=== PATIENT | male | born 1950 | race Caucasian/White ===

== ENCOUNTER 2017-06-29 16:47 | Emergency (ER) | payer OTHER ==
[2017-06-29 16:53] VITALS: BP 185/110; PULSE 88; RESP 20; TEMP 98.4; O2SAT 98
[2017-06-29] MEDS ORDERED: METH5TAB4 PO (17:07)
[2017-06-29] MEDS ORDERED: METO25TA3 PO (17:07)
--- NOTE | 2017-06-29 17:41 | RADRPT ---
EXAM DATE/TIME: 06/29/2017 17:25 [place] COMPARISON: No previous studies available for comparison. INDICATIONS : Left elbow swelling and pain, no trauma. MEDICAL HISTORY : None. SURGICAL HISTORY : None. ENCOUNTER: Initial ACUITY: 2 days PAIN SCORE: 3/10 LOCATION: Left posterior elbow. FINDINGS: Two view examination of the left elbow demonstrates significant periarticular and posterior elbow sof t tissue swelling. Bony structures are intact without evidence of fracture or dislocation. There is no significant joint effusion. CONCLUSION: Extensive periarticular soft tissue swelling which may be originating from the olecra non bursa. Otherwise normal-appearing joint without evidence of joint effusion or acute bony abnormality. Clint Real MD on June 29, 2017 at 17:38 Board Certified Radiologist. This report was verified electronically.
--- NOTE | 2017-06-29 17:43 | PD ---
HPI Chief Complaint: Skin Problem Time Seen by Provider: 17:17 Travel History International Travel<30 days: No Contact w/Intl Traveler<30days: No Traveled to known affect area: No History of Present Illness HPI 67-year-old male here with left upper extremity swelling, itching, mild erythema. Patient believes he may have been bitten by an insect 2 days ago. Severity is moderate and relieved with OTC Benadryl. He reports the swelling has actually reduced since yesterday. While at his primary doctor's for routine visit he mentioned the symptoms of his left elbow. He was referred to the ER for x-ray of the elbow. Patient had routine blood work done today which revealed no leukocytosis his white blood cell count was 6.2. REPLACED BY [facility] Past Medical History Narrative Medical Significant for hypertension Hypertension: Yes Thyroid Disease: Yes Influenza Vaccination: No Past Surgical History Surgical History: No Previous Surgery Social History Alcohol Use: No Tobacco Use: No Substance Use: No Allergies-Medications (Allergen,Severity, Reaction): Coded Allergies: ibuprofen (Verified Allergy, Severe, LIP SWELLING, 06/29/17) Reported Meds & Prescriptions Reported Meds & Active Scripts Active Reported Methimazole 5 Mg Tab 5 Mg PO DAILY Metoprolol Tartrate 25 Mg Tab 25 Mg PO DAILY Review of Systems Except as stated in HPI: all other systems reviewed are Neg General / Constitutional: No: Fever Physical Exam Narrative GENERAL: Alert male no distress. SKIN: Warm and dry. HEAD: Normocephalic. EYES: No scleral icterus. No injection or drainage. NECK: Supple, trachea midline. No JVD or lymphadenopathy. CARDIOVASCULAR: Regular rate and rhythm without murmurs, gallops, or rubs. RESPIRATORY: Breath sounds equal bilaterally. No accessory muscle use. GASTROINTESTINAL: Abdomen soft, non-tender, nondistended. MUSCULOSKELETAL: No cyanosis. Left upper extremity: Notable swelling, mild warmth and erythema from the mid humerus to the proximal forearm. 3 mm abrasion to the left lateral forearm. No drainage, fluctuance, induration. Patient can freely flex and extend the elbow. No bony tenderness. 2+ distal pulses. Brisk cap refill. Data Data Last Documented VS Vital Signs Date Time Temp Pulse Resp B/P (MAP) Pulse Ox O2 Delivery O2 Flow Rate FiO2 06/29/17 16:53 98.4 88 20 185/110 (135) 98 Orders Orders Elbow, Limited (Ap&Lat) (06/29/17 ) MDM Medical Decision Making Medical Screen Exam Complete: Yes Emergency Medical Condition: Yes Interpretation(s) Afebrile. No tachycardia. CBC from outpatient lab today 06/29/17: WBC 6.9 Left elbow x-ray: CONCLUSION: Extensive periarticular soft tissue swelling which may be originating from the olecranon bursa. Otherwise normal-appearing joint without evidence of joint effusion or acute bony abnormality. Differential Diagnosis Cellulitis, abscess, inflamed insect bite, septic arthritis Narrative Course 67 old male with swelling and erythema to the left upper extremity in 2 days. He denies pain or fever. He reports the area as pruritic. The patient does have a small abrasion in the area of the erythema but cannot recall specific injury. I do not suspect septic arthritis. He is afebrile. No leukocytosis. I believe this is cellulitis. Patient will be treated with clindamycin and instructed to follow-up with his primary doctor for recheck. Diagnosis Primary Impression: Cellulitis Qualified Codes: L03.114 - Cellulitis of left upper limb Referrals: Primary Care Physician Additional Instructions: Take the antibiotics as prescribed. Follow-up with her primary doctor for recheck. Return if he developed new or worsening symptoms such as fever, increasing pain , increasing swelling Scripts Clindamycin (Clindamycin) 300 Mg Cap 300 MG PO Q6H for Infection for 10 Days, #40 CAP 0 Refills Prov: Kristi Haile 06/29/17 Disposition: 01 DISCHARGE HOME Condition: Stable Kristi Haile Jun 29, 2017 17:43
[2017-06-29] MEDS ORDERED: CLIN300C5 PO (17:47)
[2017-06-29] MEDS ORDERED: CLINDAMYCIN 150 MG CAP PO ONE (18:00)
== END 2017-06-29 17:58 | disposition home or self-care (01) ==
LOC: PHEFT 16:47
DX: L03.114 Cellulitis of left upper limb (principal); I10 Essential (primary) hypertension
CPT/HCPCS: 73070; 99283

== ENCOUNTER 2018-02-16 16:34 | Inpatient (IN) ==
--- NOTE | 2018-02-16 17:11 | XR ---
EXAM DATE: 02/16/2018 5:04 PM EDT AGE/SEX: 67 years / Male INDICATIONS: Short of breath, post 12 hours heart ablation. CLINICAL DATA: This is the patient's initial encounter. Patient reports that signs and symptoms have been present for 1 day and indicates a pain score of 1/10. MEDICAL/SURGICAL HISTORY: . A-fib. . Heart ablation. COMPARISON: No prior exams available for comparison. FINDINGS: The heart is moderately enlarged. The mediastinal contours appear somewhat widened. There is a small right-sided effusion. The osseous structures are grossly intact. CT imaging may be of benefit for fur ther assessment. CONCLUSION: The heart appears mildly enlarged. The mediastinum appears somewhat widened and indistinct. CT imagin g of the chest with contrast would be of benefit for further assessment. Electronically signed by: Vijay Glass MD 02/16/2018 5:10 PM EDT
[2018-02-16 17:42] LABS: Baso # (Auto) 0.1 th/mm3 (0.0-0.2); Eos # (Auto) 0.1 th/mm3 (0.0-0.4); Eos % (Auto) 1.3 % (0.0-4.0); Hemoglobin 11.2 gm/dL (13.0-17.0); Lymph # (Auto) 1.5 th/mm3 (1.0-4.8); Lymph % (Auto) 20.1 % (9.0-44.0); Mean Corpuscular HGB Conc 34.9 % (32.0-36.0); Mean Corpuscular Hemoglobin 32.6 pg (27.0-34.0); Mean Corpuscular Volume 93.2 fL (80.0-100.0); Mean Platelet Volume 7.6 fL (7.0-11.0); Mono # (Auto) 0.5 th/mm3 (0.0-0.9); Mono % (Auto) 6.7 % (0.0-8.0); Neut # (Auto) 5.4 th/mm3 (1.8-7.7); Neut % (Auto) 70.9 % (16.0-70.0); Platelet Count 129 th/mm3 (150-450); Red Blood Count 3.44 mil/mm3 (4.50-5.90); Red Cell Distribution Width 15.9 % (11.6-17.2); White Blood Count 7.6 th/mm3 (4.0-11.0)
[2018-02-16 18:06] LABS: Calcium 7.9 mg/dL (8.5-10.1); Carbon Dioxide 24.8 meq/L (21.0-32.0); Potassium 4.1 meq/L (3.5-5.1)
[2018-02-16 18:09] LABS: Troponin I 0.34 ng/mL (0.02-0.05)
[2018-02-16 18:33] LABS: Activated Partial Thrombo Time 28.2 sec (24.3-30.1); INR 1.1 Ratio; Prothrombin Time 11.4 sec (9.8-11.6)
--- NOTE | 2018-02-16 19:36 | CT ---
EXAM DATE: 02/16/2018 7:08 PM EDT AGE/SEX: 67 years / Male INDICATIONS: Chest pain and short of breath Post cardiac ablation. CLINICAL DATA: This is the patient's initial encounter. Patient reports that signs and symptoms have been present for 1 day and indicates a pain score of 5/10. MEDICAL/SURGICAL HISTORY: Cardiovascular disease. Hypertension. . Cardiac ablation. RADIATION DOSE: 23.33 CTDI (mGy) COMPARISON: No prior exams available for comparison. TECHNIQUE: Volumetric scanning was performed using a multi-row detector CT scanner during bolus infu zoye of 100 ml Omnipaque 350 (iohexol) nonionic water-soluble contrast as a cumulative dose for mult iple exams. The data was post processed with a variety of visualization algorithms including full vol ume maximum intensity projection and sliding thin slab reformation. Using automated exposure control and adjustment of the mA and/or kV according to patient size, radiation dose was kept as low as reas onably achievable to obtain optimal diagnostic quality images. DICOM format image data is available electronically for review and comparison. FINDINGS: No filling defects identified to suggest pulmonary embolic disease. There is a small right-sided pleu ral effusion. Mild basilar atelectasis. No pneumothorax. There is a mildly enlarged AP window lymph node measuring up to 1.5 cm in short axis diameter. Border line enlarged pretracheal and subcarinal lymph nodes also noted. Small amount of free fluid in the ab domen. CONCLUSION: 1. Negative for pulmonary embolus. Small right-sided pleural effusion. 2. Mild adenopathy at the AP window. No significant lung consolidation. 3. Small amount of free fluid in the abdomen around the spleen. Electronically signed by: Juan Figueroa MD 02/16/2018 7:35 PM EDT
--- NOTE | 2018-02-16 19:52 | CT ---
EXAM DATE: 02/16/2018 7:07 PM EDT AGE/SEX: 67 years / Male INDICATIONS: Abdomen and chest pain post cardiac ablation. CLINICAL DATA: This is the patient's initial encounter. Patient reports that signs and symptoms have been present for 1 day and indicates a pain score of 9/10. MEDICAL/SURGICAL HISTORY: Cardiovascular disease. . cardiac ablation. ORAL CONTRAST: No oral contrast ingested. RADIATION DOSE: 31.25 CTDI (mGy) COMPARISON: No prior exams available for comparison. TECHNIQUE: Multiple contiguous axial images were obtained through the abdomen and pelvis following b olus infusion of 100 ml Omnipaque 350 (iohexol) nonionic water-soluble contrast as a cumulative dos e for multiple exams. No oral contrast ingested. Using automated exposure control and adjustment of the mA and/or kV according to patient size, radiation dose was kept as low as reasonably achievable t o obtain optimal diagnostic quality images. DICOM format image data is available electronically for review and comparison. FINDINGS: There is a small right-sided pleural effusion. Fatty liver. Spleen, adrenals, kidneys and pancreas demonstrate no acute findings. There is mild anas arca. Small amount of free fluid in the abdomen. No free air. Mild constipation.. CONCLUSION: 1. Small right effusion. Mild ascites. Mild anasarca. Mild constipation. Electronically signed by: Juan Figueroa MD 02/16/2018 7:51 PM EDT
--- NOTE | 2018-02-16 20:18 | ED ---
HPI General Chief complaint: Chest Pain Stated complaint: Chest pain/sob Time Seen by Provider: 02/16/18 17:37 Source: patient Mode of arrival: wheelchair Limitations: no limitations History of Present Illness HPI narrative: Patient is a 67 year old male who comes in complaining of shortness of breath and chest tightness. He had an ablation for atrial fibrillation done [address] Erwin and says yesterday he started to feel short of breath. He says he does not have pain to his chest, but feels like it is tight. He says that walking makes the shortness of breath worse. He says he can barely walk a few steps without becoming very short of breath. He says he has no issue with laying flat. He denies fever or chills. He denies nausea or vomiting. He has had swelling to his left leg, but this has been a chronic issue for him. Severity is moderate. Related Data Home Medications Medication Instructions Recorded Confirmed apixaban [Eliquis] 5 mg PO BID 02/14/18 02/16/18 gabapentin 300 mg PO DAILY 02/14/18 02/16/18 methimazole 20 mg PO DAILY 02/14/18 02/16/18 metoprolol succinate 150 mg PO DAILY 02/14/18 02/16/18 Allergies Allergy/AdvReac Type Severity Reaction Status Date / Time cat dander Allergy Severe Itching Verified 02/16/18 17:50 house dust Allergy Severe Itching Verified 02/16/18 17:50 ibuprofen Allergy Severe LIP Verified 02/16/18 17:50 SWELLING Review of Systems Except as stated in HPI: all other systems reviewed are negative Constitutional Denies chills and Denies fever(s) ENT Denies dizziness Cardiovascular Reports edema, Reports dyspnea and Reports dyspnea on exertion Respiratory Denies cough and Denies wheezing Gastrointestinal Denies nausea and Denies vomiting Musculoskeletal Denies myalgias and Denies arthralgias Integumentary/Breasts Denies change in pigmentation and Denies lesions Neurologic Denies focal weakness and Denies numbness [facility] Medical History Medical History Atrial fibrillation and flutter (Acute) Cellulitis (Acute) Chronic kidney disease (Acute) HTN (hypertension) (Acute) Hiatal hernia (Acute) Hyperthyroidism (Acute) Obstructive sleep apnea (Acute) Surgical History Surgical History H/O adenoidectomy (Acute) H/O hernia repair (Acute) Hx of tonsillectomy (Acute) S/P ablation of atrial fibrillation (Acute) Social History Social History Substance History: No History of Abuse Second Hand Smoke Exposure: No Smoking Status: Never smoker Tobacco Type: Cigars How Often Do You Have a Drink Containing Alcohol: 4 or more times a week Recent Travel in [facility] within the Last 8 Weeks: No Recent Out of Country Travel within the Last 8 Weeks: No Immunization History Tetanus Immunization: Unsure Hx Influenza Vaccine This Season: No Exam Narrative Exam Narrative: GENERAL: Awake and alert, in no acute distress. SKIN: Focused skin assessment warm/dry. No wounds or signs of infection. HEAD: Atraumatic. Normocephalic. EYES: Pupils equal and round. No scleral icterus. ENT: Mucous membranes pink and moist. NECK: Trachea midline. No JVD. CARDIOVASCULAR: Bradycardia. No murmur appreciated. RESPIRATORY: No accessory muscle use. Clear to auscultation. Breath sounds equal bilaterally. GASTROINTESTINAL: Abdomen soft, non-tender, nondistended. MUSCULOSKELETAL: No obvious deformities. No clubbing. No cyanosis. Mild edema of the left lower extremity. NEUROLOGICAL: Awake and alert. No obvious cranial nerve deficits. Motor grossly within normal limits. Normal speech. PSYCHIATRIC: Appropriate mood and affect; insight and judgment normal. Course Hospital Course: IV established, labs sent. Patient connected to the cardiac technologist. Initial Documented Vital Signs Temperature 98.7 F 02/16/18 16:41 Pulse Rate 49 L 02/16/18 16:41 Respiratory Rate 24 02/16/18 16:41 Blood Pressure 170/83 H 02/16/18 16:41 Pulse Oximetry 95 02/16/18 16:41 Last Documented Vital Signs Temperature 98.7 F 02/16/18 16:41 Pulse Rate 44 L 02/16/18 19:41 Respiratory Rate 24 02/16/18 16:41 Blood Pressure 162/70 H 02/16/18 19:41 Pulse Oximetry 100 02/16/18 19:41 Medical Decision Making MDM Narrative Medical decision making narrative: Patient is a 67 year old male who comes in complaining of shortness of breath and chest tightness. IV established, labs sent. Patient connected to the cardiac technologist. Labs show elevated troponin to 0.34. This is likely secondary to patient's recent ablation. Patient is on anticoagulation currently, Eliquis. CXR was concerning for widening of the mediastinum. CTA performed showed no PE or issue with the aorta. Patient does have a small right sided pleural effusion and mild ascites. I spoke with Dr. Haney who suggests observation and repeat Troponins. Patient placed in observation for further management. Differential Diagnosis Differential Diagnosis: ACS vs CHF vs PE Medical Records Medical records reviewed: Yes I reviewed the patient's medical records. Lab Data Lab results reviewed: Yes I reviewed the patient's lab results. Result diagrams: 02/16/18 17:13 02/16/18 17:13 Lab Results 02/16/18 02/16/18 02/16/18 Range/Units 17:13 17:13 18:00 WBC 7.6 (4.0-11.0) th/mm3 RBC 3.44 L (4.50-5.90) mil/mm3 Hgb 11.2 L (13.0-17.0) gm/dL Hct 32.0 L (39.0-51.0) % MCV 93.2 (80.0-100.0) fL MCH 32.6 (27.0-34.0) pg MCHC 34.9 (32.0-36.0) % RDW 15.9 (11.6-17.2) % Plt Count 129 L (150-450) th/mm3 MPV 7.6 (7.0-11.0) fL Neut % (Auto) 70.9 H (16.0-70.0) % Lymph % (Auto) 20.1 (9.0-44.0) % Loup % (Auto) 6.7 (0.0-8.0) % Eos % (Auto) 1.3 (0.0-4.0) % Baso % (Auto) 1.0 (0.0-2.0) % Neut # (Auto) 5.4 (1.8-7.7) th/mm3 Lymph # (Auto) 1.5 (1.0-4.8) th/mm3 Loup # (Auto) 0.5 (0.0-0.9) th/mm3 Eos # (Auto) 0.1 (0.0-0.4) th/mm3 Baso # (Auto) 0.1 (0.0-0.2) th/mm3 WBC Differential . Differential Comment Auto diff final PT (9.8-11.6) sec INR Ratio APTT (24.3-30.1) sec Sodium 136 (136-145) meq/L Potassium 4.1 (3.5-5.1) meq/L Chloride 103 (98-107) meq/L Carbon Dioxide 24.8 (21.0-32.0) meq/L Anion Gap 8 (5-15) meq/L BUN 11 (7-18) mg/dL Creatinine 1.09 (0.60-1.30) mg/dL Estimated GFR 68 L (>89) mL/min Random Glucose 115 H (74-106) mg/dL Calcium 7.9 L (8.5-10.1) mg/dL Troponin I 0.34 H (0.02-0.05) ng/mL B-Natriuretic Peptide 166 H (0-100) pg/mL 02/16/18 Range/Units 18:05 WBC (4.0-11.0) th/mm3 RBC (4.50-5.90) mil/mm3 Hgb (13.0-17.0) gm/dL Hct (39.0-51.0) % MCV (80.0-100.0) fL MCH (27.0-34.0) pg MCHC (32.0-36.0) % RDW (11.6-17.2) % Plt Count (150-450) th/mm3 MPV (7.0-11.0) fL Neut % (Auto) (16.0-70.0) % Lymph % (Auto) (9.0-44.0) % [place]oup % (Auto) (0.0-8.0) % Eos % (Auto) (0.0-4.0) % Baso % (Auto) (0.0-2.0) % Neut # (Auto) (1.8-7.7) th/mm3 Lymph # (Auto) (1.0-4.8) th/mm3 Loup # (Auto) (0.0-0.9) th/mm3 Eos # (Auto) (0.0-0.4) th/mm3 Baso # (Auto) (0.0-0.2) th/mm3 WBC Differential Differential Comment PT 11.4 (9.8-11.6) sec INR 1.1 Ratio APTT 28.2 (24.3-30.1) sec Sodium (136-145) meq/L Potassium (3.5-5.1) meq/L Chloride (98-107) meq/L Carbon Dioxide (21.0-32.0) meq/L Anion Gap (5-15) meq/L BUN (7-18) mg/dL Creatinine (0.60-1.30) mg/dL Estimated GFR (>89) mL/min Random Glucose (74-106) mg/dL Calcium (8.5-10.1) mg/dL Troponin I (0.02-0.05) ng/mL B-Natriuretic Peptide (0-100) pg/mL Imaging Data Radiologist's impression: Chest X-Ray 02/16/18 16:48 CONCLUSION: The heart appears mildly enlarged. The mediastinum appears somewhat widened and indistinct. CT imaging of the chest with contrast would be of benefit for further assessment. Chest CTA 02/16/18 17:48 CONCLUSION: 1. Negative for pulmonary embolus. Small right-sided pleural effusion. 2. Mild adenopathy at the AP window. No significant lung consolidation. 3. Small amount of free fluid in the abdomen around the spleen. Abdomen/Pelvis CT 02/16/18 18:46 CONCLUSION: 1. Small right effusion. Mild ascites. Mild anasarca. Mild constipation. ECG Data EKG Prior to Arrival: No Attestation: I personally reviewed and interpreted this ECG as follows: Interpretation: ECG shows sinus bradycardia at a rate of 49. No ST elevation or depression. Discharge Plan Physicians Team ED Provider: Antonietta Cross Primary Care Provider: UNKNOWN, Rxs /Orders / Referrals /Forms Prescriptions: No Action metoprolol succinate 100 mg Tablet Extended Release 24 Hr 150 mg PO DAILY RF: 0 gabapentin 300 mg Capsule 300 mg PO DAILY RF: 0 methimazole 10 mg Tablet 20 mg PO DAILY RF: 0 apixaban [Eliquis] 5 mg Tablet 5 mg PO BID RF: 0 Discharge Interventions Interventions: Vital Signs Last Done: 02/16/18 19:41 Status ED Status: With Doctor
[2018-02-16] MEDS ORDERED: Sod Chloride 0.9% Inj 1,000 ML IV.CONT SCH (20:30)
[2018-02-16] MEDS ORDERED: Bisacodyl 10 MG Supp RECTAL PRN (20:30)
[2018-02-16] MEDS ORDERED: Temazepam 15 MG Capsule PO PRN (21:00)
--- NOTE | 2018-02-16 22:51 | P.HPIM ---
History of Present Illness Primary Care Physician: UNKNOWN History of Present Illness: 67-year-old male with a history of atrial fibrillation, obstructive sleep apnea who underwent ablation for atrial fibrillation done on Wednesday. He presents for onset of substernal chest tightness worse with inspiration, generalized fatigue , dyspnea on exertion which began around 5 PM yesterday. Denies any nausea or vomiting, however has had decreased appetite. Denies any abdominal pain. Review of Systems All other systems reviewed negative except as stated in HPI PMFSH - History History Provided By: Patient - Medical History Medical History: Medical History (Last Reviewed 02/16/18 @ 20:29 by Antonietta Cross MD) Atrial fibrillation and flutter Cellulitis Chronic kidney disease HTN (hypertension) Hiatal hernia Hyperthyroidism Obstructive sleep apnea - Surgical History Surgical History: Surgical History (Last Reviewed 02/16/18 @ 20:29 by Antonietta Cross MD) H/O adenoidectomy H/O hernia repair Hx of tonsillectomy S/P ablation of atrial fibrillation - Family History Family History: Family History (Last Updated 02/16/18 @ 22:47 by Arslan Burnett MD) Father Diabetes Mother Diabetes - Tobacco History Second Hand Smoke Exposure: No Tobacco Use In Past 30 Days: No Smoking Status: Never smoker Tobacco Type: Cigars - Alcohol History How Often Do You Have a Drink Containing Alcohol: 4 or more times a week - Substance Use History Substance History: No History of Abuse - Travel History Recent Travel in the [place] Within the Last 8 Weeks: No Recent Travel Out of the Country Within the Last 8 Weeks: No - Immunization History Tetanus Immunization: Unsure Hx Influenza Vaccine This Season: No Medications and Allergies Active Medications: Active Medications Al Hydroxide/Mg Hydroxide (Milk Of Magnesia Liq) 30 ml PO Q12H PRN PRN Reason: Mild Constipation Bisacodyl (Dulcolax Supp) 10 mg RECTAL DAILY PRN PRN Reason: SEVERE CONSITIPATION Sodium Chloride (Ns Inj) 1,000 mls @ 50 mls/hr IV.CONT .Q20H SERVANDO Last Admin: 02/16/18 22:39 Dose: 50 mls/hr Lactulose (Lactulose Liq) 30 ml PO DAILY PRN PRN Reason: SEVERE CONSITIPATION Methimazole (Tapazole) 20 mg PO DAILY SERVANDO Sennosides (Senokot) 17.2 mg PO Q12H PRN PRN Reason: Moderate Constipation Temazepam (Restoril) 15 mg PO HS PRN PRN Reason: INSOMNIA Allergies Allergy/AdvReac Type Severity Reaction Status Date / Time cat dander Allergy Severe Itching Verified 02/16/18 17:50 house dust Allergy Severe Itching Verified 02/16/18 17:50 ibuprofen Allergy Severe LIP Verified 02/16/18 17:50 SWELLING Home Medications Medication Instructions Recorded Confirmed Type apixaban [Eliquis] 5 mg PO BID 02/14/18 02/16/18 History gabapentin 300 mg PO HS 02/14/18 02/16/18 History methimazole 20 mg PO DAILY 02/14/18 02/16/18 History metoprolol succinate 150 mg PO DAILY 02/14/18 02/16/18 History Exam Vital signs: Vital Signs 02/16/18 16:41 02/16/18 19:41 Temperature 98.7 F Pulse Rate 49 L 44 L Respiratory Rate 24 Blood Pressure 170/83 H 162/70 H Pulse Oximetry 95 100 Intake & Output 02/16/18 02/16/18 02/17/18 06:59 18:59 06:59 Weight 136.078 kg 136.078 kg Other: Weight On Admission 136.078 kg Narrative: GENERAL: Patient sitting up in bed. Appears comfortable. Alert and oriented 3. SKIN: Warm and dry. HEAD: Atraumatic. Normocephalic. EYES: Pupils equal and round. No scleral icterus. No injection or drainage. ENT: No nasal bleeding or discharge. Mucous membranes pink and moist. NECK: Trachea midline. No JVD. CARDIOVASCULAR: Regular rate and rhythm. RESPIRATORY: No accessory muscle use. Clear to auscultation. Breath sounds equal bilaterally. GASTROINTESTINAL: Abdomen soft, non-tender, nondistended. Hepatic and splenic margins not palpable. MUSCULOSKELETAL: Extremities without clubbing, cyanosis. trace peripheral edema. No obvious deformities. NEUROLOGICAL: Awake and alert. No obvious cranial nerve deficits. Motor grossly within normal limits. Five out of 5 muscle strength in the arms and legs. Normal speech. PSYCHIATRIC: Appropriate mood and affect; insight and judgment normal. Results - Labs CBC & Chem 7: 02/16/18 17:13 02/16/18 17:13 Labs: Short CBC 02/16/18 Range/Units 17:13 WBC 7.6 (4.0-11.0) th/mm3 Hgb 11.2 L (13.0-17.0) gm/dL Hct 32.0 L (39.0-51.0) % Plt Count 129 L (150-450) th/mm3 BMP 02/16/18 17:13 Sodium 136 Potassium 4.1 Chloride 103 Carbon Dioxide 24.8 BUN 11 Creatinine 1.09 Calcium 7.9 L Cardiac Enzymes 02/16/18 Range/Units 17:13 Troponin I 0.34 H (0.02-0.05) ng/mL - Imaging Impressions Chest X-Ray 02/16/18 16:48 CONCLUSION: The heart appears mildly enlarged. The mediastinum appears somewhat widened and indistinct. CT imaging of the chest with contrast would be of benefit for further assessment. Chest CTA 02/16/18 17:48 CONCLUSION: 1. Negative for pulmonary embolus. Small right-sided pleural effusion. 2. Mild adenopathy at the AP window. No significant lung consolidation. 3. Small amount of free fluid in the abdomen around the spleen. Abdomen/Pelvis CT 02/16/18 18:46 CONCLUSION: 1. Small right effusion. Mild ascites. Mild anasarca. Mild constipation. Caprini VTE Risk Assessment Caprini VTE Risk Assessment: Moderate/High Risk (score >= 2) Caprini Risk Assessment Model: Point Value = 1 Point Value = 2 Point Value = 3 Point Value = 5 Age 41-60 Minor surgery BMI > 25 kg/m2 Swollen legs Varicose veins or History of unexplained or recurrent spontaneous Oral contraceptives or hormone replacement Sepsis (< 1 month) Serious lung disease, including pneumonia (< 1 month) Abnormal pulmonary function Acute myocardial infarction Congestive heart failure (< 1 month) History of inflammatory bowel disease Medical patient at bed rest Age 61-74 Arthroscopic surgery Major open surgery (> 45 min) Laparoscopic surgery (> 45 min) Malignancy Confined to bed (> 72 hours) Immobilizing plaster cast Central venous access Age >= 75 History of VTE Family history of VTE Factor V Leiden Prothrombin [id number] Lupus anticoagulant Anticardiolipin antibodies Elevated serum homocysteine Heparin-induced thrombocytopenia Other congenital or acquired thrombophilia Stroke (< 1 month) Elective arthroplasty Hip, pelvis, or leg fracture Acute spinal cord injury (< 1 month) Prophylaxis Regimen: Total Risk Factor Score Risk Level Prophylaxis Regimen 0-1 Low Early ambulation 2 Moderate Order ONE of the following: *Sequential Compression Device (SCD) *Heparin 5000 units SQ BID 3-4 Higher Order ONE of the following medications: *Heparin 5000 units SQ TID *Enoxaparin/Lovenox 40 mg SQ daily (WT < 150 kg, CrCl > 30 mL/min) *Enoxaparin/Lovenox 30 mg SQ daily (WT < 150 kg, CrCl > 10-29 mL/min) *Enoxaparin/Lovenox 30 mg SQ BID (WT < 150 kg, CrCl > 30 mL/min) AND/OR *Sequential Compression Device (SCD) 5 or more Highest Order ONE of the following medications: *Heparin 5000 units SQ TID (Preferred with Epidurals) *Enoxaparin/Lovenox 40 mg SQ daily (WT < 150 kg, CrCl > 30 mL/min) *Enoxaparin/Lovenox 30 mg SQ daily (WT < 150 kg, CrCl > 10-29 mL/min) *Enoxaparin/Lovenox 30 mg SQ BID (WT < 150 kg, CrCl > 30 mL/min) AND *Sequential Compression Device (SCD) Assessment and Plan - Plan //Chest pain -Troponin elevated 0.34. EKG with no concerning changes. Chest x-ray and CT pulmonary angiogram negative for acute findings, however does show some mild adenopathy and free fluid in the abdomen around the spleen. = We will trend EKGs and troponins. Hold off on apixaban for now. Cardiology consulted. //Sinus bradycardia. Could be associated with patient's shortness of breath. Will hold off on metoprolol for now. Patient will be on telemetry. Cardiology consulted. Appreciate assistance. //Hyperthyroidism. Continue methimazole. //Incidental finding of adenopathy and free fluid on CT pulmonary exam. Patient to follow-up with primary care doctor as outpatient. //Obstructive sleep apnea. Continue CPAP. Discussed Condition With: Patient, nurse, ED physician. H&P: Quality - VTE Deep Vein Thrombosis/Pulmonary Embolism Present on Admission: No
[2018-02-16 23:08] LABS: Troponin I 0.28 ng/mL (0.02-0.05)
[2018-02-17 05:17] LABS: Free T4 (Free Thyroxine) 0.49 ng/dL (0.76-1.46); Troponin I 0.25 ng/mL (0.02-0.05)
--- NOTE | 2018-02-17 09:09 | P.PN ---
Subjective Interval history: Follow-up for bradycardia, atrial fibrillation, elevated troponins. Patient is currently doing well. He denies any chest discomfort, shortness of breath, fever or chills. However he does complain of lightheadedness and dizziness. Physical Exam Vital signs: Vital Signs 02/16/18 16:41 02/16/18 19:41 02/17/18 04:00 Temperature 98.7 F 98.2 F Pulse Rate 49 L 44 L 37 L Respiratory Rate 24 18 Blood Pressure 170/83 H 162/70 H 151/76 H Pulse Oximetry 95 100 100 02/17/18 07:23 Temperature 97.9 F Pulse Rate 38 L Respiratory Rate 18 Blood Pressure 148/82 H Pulse Oximetry 100 Intake & Output 02/16/18 02/17/18 02/17/18 18:59 06:59 18:59 Weight 136.078 kg 136.078 kg Other: Weight On Admission 136.078 kg Narrative: GENERAL: Alert, oriented 3, NAD. Morbidly obese. SKIN: Warm and dry. HEAD: Normocephalic. EYES: No scleral icterus. No injection or drainage. NECK: Supple, trachea midline. No JVD or lymphadenopathy. CARDIOVASCULAR: Regular rhythm, bradycardic without murmurs, gallops, or rubs. RESPIRATORY: Breath sounds equal bilaterally. No accessory muscle use. GASTROINTESTINAL: Abdomen soft, non-tender, nondistended. MUSCULOSKELETAL: No cyanosis, or edema. BACK: Nontender without obvious deformity. No CVA tenderness. Results - Labs CBC & Chem 7: 02/16/18 17:13 02/16/18 17:13 Laboratory Results - last 24 hr 02/16/18 02/16/18 02/16/18 17:13 17:13 17:13 WBC 7.6 RBC 3.44 L Hgb 11.2 L Hct 32.0 L MCV 93.2 MCH 32.6 MCHC 34.9 RDW 15.9 Plt Count 129 L MPV 7.6 Neut % (Auto) 70.9 H Lymph % (Auto) 20.1 [place] % (Auto) 6.7 Eos % (Auto) 1.3 Baso % (Auto) 1.0 Neut # (Auto) 5.4 Lymph # (Auto) 1.5 [place] # (Auto) 0.5 Eos # (Auto) 0.1 Baso # (Auto) 0.1 WBC Differential . Differential Comment Auto diff final PT INR APTT Sodium 136 Potassium 4.1 Chloride 103 Carbon Dioxide 24.8 Anion Gap 8 BUN 11 Creatinine 1.09 Estimated GFR 68 L Random Glucose 115 H Calcium 7.9 L Total Creatine Kinase Troponin I 0.34 H B-Natriuretic Peptide TSH 20.700 H Free T4 02/16/18 02/16/18 02/16/18 18:00 18:05 22:14 WBC RBC Hgb Hct MCV MCH MCHC RDW Plt Count MPV Neut % (Auto) Lymph % (Auto) [place] % (Auto) Eos % (Auto) Baso % (Auto) Neut # (Auto) Lymph # (Auto) [place] # (Auto) Eos # (Auto) Baso # (Auto) WBC Differential Differential Comment PT 11.4 INR 1.1 APTT 28.2 Sodium Potassium Chloride Carbon Dioxide Anion Gap BUN Creatinine Estimated GFR Random Glucose Calcium Total Creatine Kinase 64 Troponin I 0.28 H B-Natriuretic Peptide 166 H TSH Free T4 02/17/18 02/17/18 04:30 04:30 WBC RBC Hgb Hct MCV MCH MCHC RDW Plt Count MPV Neut % (Auto) Lymph % (Auto) [place] % (Auto) Eos % (Auto) Baso % (Auto) Neut # (Auto) Lymph # (Auto) [place] # (Auto) Eos # (Auto) Baso # (Auto) WBC Differential Differential Comment PT INR APTT Sodium Potassium Chloride Carbon Dioxide Anion Gap BUN Creatinine Estimated GFR Random Glucose Calcium Total Creatine Kinase 53 Troponin I 0.25 H B-Natriuretic Peptide TSH Free T4 0.49 L Cancelled - Imaging Impressions Chest X-Ray 02/16/18 16:48 CONCLUSION: The heart appears mildly enlarged. The mediastinum appears somewhat widened and indistinct. CT imaging of the chest with contrast would be of benefit for further assessment. Chest CTA 02/16/18 17:48 CONCLUSION: 1. Negative for pulmonary embolus. Small right-sided pleural effusion. 2. Mild adenopathy at the AP window. No significant lung consolidation. 3. Small amount of free fluid in the abdomen around the spleen. Abdomen/Pelvis CT 02/16/18 18:46 CONCLUSION: 1. Small right effusion. Mild ascites. Mild anasarca. Mild constipation. Assessment and Plan - Plan Mr. Conteh is a pleasant 67-year-old male with a history of atrial fibrillation status post ablation who was admitted to the hospital due to chest discomfort, dyspnea on exertion, lightheadedness and dizziness. He was found to have bradycardia as well as mildly elevated troponins. Cardiology was consulted. Symptomatic bradycardia Atrial fibrillation status post cardiac ablation Elevated troponins -Bradycardia is likely due to metoprolol succinate 150 mg daily. -Elevated troponins likely related to recent ablation procedure. -Cardiology consult pending. -We will continue to hold metoprolol. -If patient's heart rate elevates to 70s and 80s, will consider low-dose beta -toshia. -Takes apixaban 5 mg p.o. twice daily at home. Hypothyroidism -continue methimazole 20 mg daily. 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 Will continue Apixaban after cardiology evaluation IF there is no plan for any procedure.
[2018-02-17 11:10] VITALS: BP 153/70; RESP 14; TEMP 97.8; O2SAT 98
--- NOTE | 2018-02-17 12:57 | MB ---
cc: Fidel Erwin MD DATE: 02/17/2018 REASON FOR CONSULTATION: Bradycardia and chest pain. HISTORY OF PRESENT ILLNESS: Mr. Conteh is a 67-year-old gentleman with previous ablation, in sinus rhythm, who was admitted due to shortness of breath and when he takes a deep breath, he has some chest pain. He was admitted. During hospitalization, heart rate dropped into the 30s-40s when the patient was sleeping. He is severely obese, sleep apnea, and I was consulted for evaluation and management. The chart was reviewed. The patient was evaluated. ALLERGIES: CATS, HOUSE DUST AND IBUPROFEN. SOCIAL HISTORY: Negative for smoking and drinking. FAMILY HISTORY: Noncontributory to his current medical condition. MEDICATIONS AT HOME: The gentleman is on Milk of Magnesia. He is on Eliquis 5 mg twice a day, Neurontin 200 mg at bedtime, methimazole 20 mg a day and metoprolol 150 mg a day. REVIEW OF SYSTEMS: Currently, referred no chest pain or discomfort. Some chest discomfort when he takes a deep breath. No vomiting. No fever. PHYSICAL EXAMINATION: GENERAL: Alert, fully oriented. VITAL SIGNS: His blood pressure 153/70, pulse 43, respiratory rate 18. LUNGS: Ventilated. CARDIOVASCULAR: S1, S2, regular, bradycardic. ABDOMEN: Obese. No mass. No bruits. EXTREMITIES: No edema. DIAGNOSTIC STUDIES: Electrocardiogram taken during hospitalization indicates sinus rhythm, diffuse ST changes. The one at 2:45 in the morning today indicates sinus bradycardia. Diffuse ST changes. LABORATORY STUDIES: Hemoglobin 11.2, white blood cell 7.6. INR 1.2. Potassium 4.1, creatinine 1.09. TSH 20. Troponin 0.25. ASSESSMENT AND RECOMMENDATIONS: Mr. Conteh is currently stable, asymptomatic. He is in bed. He has severe morbid obesity. He has some sleep apnea. He has bradycardia during the top cager, most likely because the patient was sleeping. Heart rate is in the 40s. He is on beta tsohia. I discussed the case extensively with the patient as well as Dr. Strickland. Metoprolol can be decreased to 50 mg once a day. Norvasc can be used for blood pressure control. The gentleman can be discharged home whenever it is okay with the managing team. I will see him as previously scheduled in my office. MD DARLENE Astorga , 12:27 PM , 12:37 PM
--- NOTE | 2018-02-17 13:48 | ECG ---
Date Performed: 02/16/2018 Time Performed: 16:52:23 PTAGE: 67 years EKG: SINUS BRADYCARDIA LOW QRS VOLTAGE IN PRECORDIAL LEADS BORDERLINE ECG Since the PREVIOUS TRACING , no significant change noted PREVIOUS TRACIN02/15/2018 04.08 DOCTOR: Miles Guido Interpretating Date/Time 02/17/2018 13:45:54
--- NOTE | 2018-02-17 13:48 | ECG ---
Date Performed: 02/16/2018 Time Performed: 22:21:59 PTAGE: 67 years EKG: SINUS BRADYCARDIA BORDERLINE ECG Since the PREVIOUS TRACING , no significant change noted PREVIOUS TRACIN02/16/2018 16.52 DOCTOR: Miles Guido Interpretating Date/Time 02/17/2018 13:45:45
[2018-02-17 14:40] VITALS: PULSE 37
--- NOTE | 2018-02-17 16:04 | ECG ---
Date Performed: 02/17/2018 Time Performed: 05:45:17 PTAGE: 67 years EKG: Marked sinus Bradycardia. Clinical correlation is recommended BORDERLINE ECG PREVIOUS TRACING : 02/16/2018 22.21 DOCTOR: Miles Guido Interpretating Date/Time 02/17/2018 16:03:05
== END 2018-02-17 16:44 | disposition home or self-care (01) ==
LOC: NEDA 16:34 → NEPD 16:34 → NEPFCDU 21:38
PROVIDERS: ADMIT Hospitalist; ATTEND Hospitalist